=== PATIENT | male | born 1950 | race Caucasian/White ===

== ENCOUNTER 2016-12-13 16:10 | Inpatient (IN) | payer MEDICARE ==
[2016-12-13 21:14] LABS: Glucose,Whole Blood 94 mg/dL (75-99)
[2016-12-13 21:23] VITALS: BMI 35.6
[2016-12-13] MEDS ORDERED: HEPARIN SODIUM,PORCINE 5,000 UNIT/ML 1 ML VIAL IV ONE (21:24)
[2016-12-13] MEDS ORDERED: HEPARIN SODIUM,PORCINE 5,000 UNIT/ML 1 ML VIAL IV PRN (21:24)
[2016-12-13] MEDS ORDERED: MORPHINE SULFATE 4 MG/ML SYRINGE IVP PRN (22:03)
[2016-12-13 22:39] LABS: Basophils % (A) 1 %; CH 28.5; CHCM 33.4; Eosinophils # (A) 0.2 k/uL (0-0.7); Eosinophils % (A) 2 %; HCT 43.4 % (39.0-53.0); HDW 2.91; HGB 14.3 gm/dL (13.0-17.5); Luc # (Auto) 0.14; Luc % (Auto) 2; Lymphocytes # (A) 1.4 k/uL (1.0-4.8); Lymphocytes % (A) 17 %; MCH 28.2 pg (25.0-35.0); MCHC 32.9 g/dL (31.0-37.0); MCV 85.8 fL (80.0-100.0); Mean Platelet Volume 7.4; Monocytes # (A) 0.6 k/uL (0-1.0); Monocytes % (A) 7 %; Neutrophils % (A) 72 %; RBC 5.06 m/uL (4.30-5.90); RDW 13.8 % (11.5-15.5); WBC 8.3 k/uL (3.8-10.6)
[2016-12-13 22:48] LABS: INR 1.1 (<1.1); Partial Thromboplastin Time 23.9 sec (22.0-30.0); Prothrombin Time 10.8 sec (9.0-12.0)
[2016-12-13 22:50] LABS: Anion Gap 11 mmol/L; Blood Urea Nitrogen 13 mg/dL (9-20); Calcium 8.6 mg/dL (8.4-10.2); Carbon Dioxide 27 mmol/L (22-30); Chloride 102 mmol/L (98-107); Glucose 92 mg/dL (74-99); Non-African American GFR(MDRD) >60 (>60 ml/min/1.73 sqM); Potassium 3.9 mmol/L (3.5-5.1); Sodium 140 mmol/L (137-145)
[2016-12-13] MEDS: HYDROcodone/APAP 7.5-325MG 1 EACH TAB PO PRN (22:52)
[2016-12-13] MEDS: diphenhydrAMINE 25 MG CAP PO SCH (22:52)
[2016-12-13] MEDS: HEPARIN SODIUM,PORCINE/D5W PMX 25,000 UNIT in DEXTROSE/WATER 1 500ML.BAG IV SCH (22:53)
[2016-12-13] MEDS: NITROGLYCERIN-D5W PMX 50 MG in DEXTROSE/WATER 1 250ML.BAG IV SCH (22:54)
[2016-12-13] MEDS: TERAZOSIN 5 MG CAP PO SCH (22:56)
[2016-12-13] MEDS: METHOCARBAMOL 750 MG TAB PO SCH (22:56)
[2016-12-13] MEDS: METOPROLOL SUCCINATE (ER) 50 MG TAB.ER.24H PO SCH (22:56)
[2016-12-13] MEDS: ATORVASTATIN 80 MG TAB PO SCH (22:57)
[2016-12-13] MEDS: ALLOPURINOL 300 MG TAB PO SCH (22:57)
[2016-12-13] MEDS: LOSARTAN 50 MG TAB PO SCH (22:57)
[2016-12-13] MEDS: PRIMIDONE 50 MG TAB PO SCH (22:57)
[2016-12-13] MEDS: MAGNESIUM OXIDE 400 MG TAB PO SCH (22:57)
[2016-12-13] MEDS: FINASTERIDE 5 MG TAB PO SCH (22:58)
[2016-12-13] MEDS: traZODone HCL 50 MG TAB PO SCH (22:58)
[2016-12-14 06:17] LABS: Glucose,Whole Blood 127 mg/dL (75-99)
[2016-12-14] MEDS: ASPIRIN 81 MG CHEW PO SCH (06:24)
[2016-12-14] MEDS: METOPROLOL SUCCINATE (ER) 50 MG TAB.ER.24H PO SCH ×2 (06:24→21:23)
[2016-12-14] MEDS: HYDROcodone/APAP 7.5-325MG 1 EACH TAB PO PRN ×4 (06:24→22:36)
[2016-12-14] MEDS: TERAZOSIN 5 MG CAP PO SCH ×2 (06:24→21:23)
[2016-12-14] MEDS: METHOCARBAMOL 750 MG TAB PO SCH ×2 (06:24→21:24)
[2016-12-14] MEDS: CLOPIDOGREL 75 MG TAB PO SCH (06:24)
[2016-12-14 06:45] LABS: Basophils % (A) 1 %; CHCM 32.2; Eosinophils # (A) 0.2 k/uL (0-0.7); Eosinophils % (A) 3 %; HCT 43.2 % (39.0-53.0); HDW 2.78; HGB 13.9 gm/dL (13.0-17.5); Luc # (Auto) 0.14; Luc % (Auto) 2; Lymphocytes # (A) 1.3 k/uL (1.0-4.8); Lymphocytes % (A) 17 %; MCH 28.1 pg (25.0-35.0); MCHC 32.2 g/dL (31.0-37.0); MCV 87.4 fL (80.0-100.0); Mean Platelet Volume 7.6; Monocytes # (A) 0.5 k/uL (0-1.0); Monocytes % (A) 6 %; Neutrophils # (A) 5.3 k/uL (1.3-7.7); Neutrophils % (A) 72 %; RBC 4.94 m/uL (4.30-5.90); RDW 14.1 % (11.5-15.5); WBC 7.3 k/uL (3.8-10.6)
[2016-12-14 07:11] LABS: Anion Gap 9 mmol/L; Blood Urea Nitrogen 12 mg/dL (9-20); Calcium 8.3 mg/dL (8.4-10.2); Carbon Dioxide 29 mmol/L (22-30); Chloride 101 mmol/L (98-107); Glucose 117 mg/dL (74-99); Non-African American GFR(MDRD) >60 (>60 ml/min/1.73 sqM); Potassium 3.8 mmol/L (3.5-5.1); Sodium 139 mmol/L (137-145)
[2016-12-14] MEDS ORDERED: IV FLUID CONTINUATION 325 ML IV ONE (07:25)
[2016-12-14] MEDS ORDERED: LIDOCAINE 2% INJ 20 MG/ML SQ ONE (07:46)
[2016-12-14] MEDS: VERAPAMIL SYRINGE (5 MG/10 ML) INTRAARTER ONE ×2 (07:49→08:30)
[2016-12-14] MEDS ORDERED: HYDROmorphone 2 MG/ML 1 ML SYRINGE IVP ONE (07:50)
[2016-12-14] MEDS ORDERED: HEPARIN SODIUM 1,000 UNIT/ML VIAL IV ONE (07:51)
[2016-12-14] MEDS ORDERED: MIDAZOLAM 2 MG/2 ML VIAL IVP ONE (07:51)
[2016-12-14] MEDS ORDERED: BIVALIRUDIN BOLUS 250 MG/50 ML IV ONE (08:14)
[2016-12-14] MEDS ORDERED: BIVALIRUDIN 250 MG in SODIUM CHLORIDE 0.9% 50 ML IV ONE (08:15)
[2016-12-14] MEDS ORDERED: fentaNYL (PF) 50 MCG/ML 2 ML AMP IV ONE (08:24)
[2016-12-14] MEDS ORDERED: CLOPIDOGREL 75 MG TAB PO ONE (08:28)
[2016-12-14] MEDS ORDERED: IOHEXOL 350 MG/ML 100 ML BOTTLE INJ ONE (08:31)
[2016-12-14] MEDS: PRIMIDONE 50 MG TAB PO SCH ×2 (09:34→21:23)
[2016-12-14] MEDS: LORATADINE 10 MG TAB PO SCH (09:35)
[2016-12-14] MEDS: IPRATROPIUM BROMIDE 0.06% NASAL SPRAY (15 ML) EA NOSTRIL SCH (09:35)
[2016-12-14] MEDS: SODIUM CHLORIDE 0.9% 600 ML IV SCH ×2 (10:41→16:23)
[2016-12-14] MEDS: NITROGLYCERIN SL TABS 0.4 MG TAB SUBLINGUAL PRN (11:51)
--- NOTE | 2016-12-14 13:00 | CC ---
DATE OF SERVICE: 12/14/2016 PERFORMING PHYSICIAN: Willis Rodriguez MD, street commissioner. PROCEDURE PERFORMED: 1. Selective right and left coronary angiogram. 2. Successful stenting of the proximal LAD using a 3.0 x 12 mm Xience NAYLA with a good angiographic result. INDICATION: This is a pleasant, 66-year-old gentleman who is known to have CAD with prior stenting of the left circumflex and LAD presented to [facility] with chest discomfort. He was seen and evaluated by Dr. Peterson who recommended proceeding with heart catheterization. APPROACH: Right radial artery. COMPLICATIONS: None. LEVEL OF SEDATION: Moderate. PROCEDURE DESCRIPTION: After obtaining an informed consent, the patient was brought to the cardiac clinical lab technologist. Right radial artery was cannulated using micropuncture technique. The micropuncture wire passed easily, then I placed 6 [place] sheath in the right radial artery. Subsequently I gave the patient 2 mg of verapamil IA and 3000 units of heparin IV. After that, I did selective right and left coronary angiogram using JR4 and JL3.5 diagnostic catheters. After that, I did intervene on the LAD, please see separate paragraph for that. SELECTIVE CORONARY ANGIOGRAM: 1. The right coronary artery is a large-caliber vessel and it is a dominant vessel. It has mild disease only. It bifurcates distally into PDA and PLV branches; both have mild diffuse disease only. 2. The left main is a large-caliber vessel. It is angiographically normal. It bifurcates into left circumflex and left anterior descending artery. 3. The left circumflex is a large-caliber vessel and it is a codominant vessel. The proximal circumflex is angiographically normally. The mid circumflex appeared to be normal as well and gives rise into a large first OM branch, which bifurcates distally into 2 separate branches. The upper ( ) branch appeared to have severe lesion in the range of 70% and seems to be a ( ) vessel only. The left circumflex continues after that as a small-caliber vessel in the AV groove. 4. Left anterior descending artery, the proximal LAD just proximal to the previous stent has a lesion that seems to be in the range of 70%. The stent in the LAD appeared to be patent. The LAD distally by the apex has a lesion that seems to be in the range of 90%, which seems to be unchanged compared to before. PCI OF THE LAD: Anticoagulation was initiated using Angiomax. Subsequently, I took JL3 guiding catheter, and the left main was engaged. A whisper wire was used to wire the LAD. After that, I did direct stenting of the lesion using a 3.0 x 12 mm Xience NAYLA, where the stent was positioned under fluoroscopy guidance and deployed under 12 atmospheres for 20 seconds. The following angiogram showed good angiographic results. CONCLUSION: 1. Mild disease involving the right coronary artery. 2. Severe disease involving the mid first obtuse marginal branch of the left circumflex, but it seems to be unchanged compared to before and the artery only ( ) vessel. 3. Severe disease involving the proximal left anterior descending artery just proximal to previous stent. 4. Severe disease involving the apical left anterior descending artery, which seems to be unchanged compared to before. 5. Successful stenting of the proximal left anterior descending artery using 3.0 x 12 mm Xience NAYLA with a good angiographic result. POSTPROCEDURE MANAGEMENT: 1. Dual antiplatelet therapy. 2. Risk factor modifications. 3. Follow up with the patient.
[2016-12-14] MEDS: CHOLECALCIFEROL 1,000 UNIT TAB PO SCH (13:16)
--- NOTE | 2016-12-14 18:53 | HP ---
DATE OF ADMISSION: 12/13/2016 PRESENTING COMPLAINT: Chest pain. HISTORY OF PRESENTING COMPLAINT: This is a 66-year-old patient well known to me from multiple admissions. Patient had just presented to [facility] with unstable angina and from there he was transferred here with a view to proceed with cardiac catheterization. Patient has been having chest pain and shortness of breath with radiation, rather cardiac-sounding. His chronic stable medical conditions include increased cholesterol, hypertension, diabetes mellitus, type 2, GERD, depression, gout, coronary artery disease with stents. He does follow with Dr. Agustin French. REVIEW OF SYSTEMS: CONSTITUTIONAL: Tired. HEENT: None. RESPIRATORY: None. CARDIOVASCULAR: As above. GASTROINTESTINAL: Heartburn. GENITOURINARY: None. MUSCULOSKELETAL: Pain in the joints. DERMATOLOGICAL: None. HEMATOLOGIC: None. LYMPHATICS: None. PSYCHIATRY: None. NEUROLOGICAL: None. PAST MEDICAL HISTORY: 1. Coronary artery disease with stent. 2. Hypercholesterolemia. 3. Hypertension. 4. Diabetes mellitus, type 2. 5. GERD. 6. Depression. 7. Gout. ALLERGIES: NONE. FAMILY HISTORY: Coronary artery disease. SOCIAL HISTORY: Patient smoked a pack a day for 33 years. Stopped 16 years ago. . Patient is on Disability. HOME MEDICATIONS: 1. Trazodone 37.5 mg p.o. at bedtime. 2. Metformin 500 mg p.o. b.i.d. 3. Benadryl 25 mg p.o. at bedtime. 4. Testosterone injection q.14 days. 5. Hytrin 5 mg p.o. b.i.d. 6. Mysoline 50 mg p.o. b.i.d. 7. Prilosec 20 mg p.o. q.48 hours. 8. Nitrostat 0.4 sublingually q.5 p.r.n. 9. Toprol XL 50 mg p.o. b.i.d. 10. Robaxin 1500 mg p.o. at bedtime and 50 mg p.o. daily. 11. Magnesium 400 mg p.o. at bedtime. 12. Losartan 100 mg p.o. at bedtime. 13. Claritin 10 mg p.o. daily. 14. Imdur ER 30 mg p.o. b.i.d. 15. Atrovent nasal spray 2 sprays each nostril daily. 16. Hydrochlorothiazide 12.5 p.o. q.48 hours. 17. [place] 7.5 one tablet q.4 p.r.n. 18. Proscar 5 mg p.o. at bedtime. 19. Plavix 75 mg p.o. daily. 20. Vitamin D3 600 units p.o. daily. 21. Lipitor 80 mg at bedtime. 22. Aspirin 81 mg p.o. daily. 23. Allopurinol 150 mg p.o. at bedtime. ALLERGIES: PENTAZOCINE. On examination, temperature afebrile, pulse 74, respiration 18, blood pressure 130/63, pulse ox 95% on 2 L. GENERAL APPEARANCE: Well built, BMI 37. Lying in bed. Tired-appearing. EYES: Pupils equal. Conjunctivae normal. HEENT: Oral cavity normal. NECK: JVD not raised. Mass not palpable. RESPIRATORY: Effort normal. LUNGS: Slightly decreased breath sounds. CARDIOVASCULAR: First and second sounds normal. No edema. ABDOMEN: Soft, nontender. Liver and spleen not palpable. LYMPHATIC: No lymph node palpable in neck or axillae. PSYCHIATRY: Alert and oriented x3. Mood and affect normal. INVESTIGATIONS: White count 7.3, hemoglobin 13.9. Potassium 3.8. BUN and creatinine are normal. Cardiac catheterization this morning; patient did have a stent in the proximal LAD. ASSESSMENT: 1. Unstable angina in a patient with known coronary artery disease, now with stent placement to the left anterior descending coronary artery. 2. Hypercholesterolemia. 3. Hypertension. 4. Diabetes mellitus, type 2. 5. Gastroesophageal reflux disease. 6. Depression. 7. Gout. PLAN: Continue current medication and treatment plan. Care with discussed with the patient's at the bedside. Dr. Rodriguez ( ) intervention.
[2016-12-14] MEDS: diphenhydrAMINE 25 MG CAP PO SCH (21:21)
[2016-12-14] MEDS: LOSARTAN 50 MG TAB PO SCH (21:22)
[2016-12-14] MEDS: ATORVASTATIN 80 MG TAB PO SCH (21:22)
[2016-12-14] MEDS: FINASTERIDE 5 MG TAB PO SCH (21:23)
[2016-12-14] MEDS: traZODone HCL 50 MG TAB PO SCH (21:23)
[2016-12-14] MEDS: ALLOPURINOL 300 MG TAB PO SCH (21:24)
[2016-12-14] MEDS: MAGNESIUM OXIDE 400 MG TAB PO SCH (21:25)
[2016-12-14] MEDS: NITROGLYCERIN-D5W PMX 50 MG in DEXTROSE/WATER 1 250ML.BAG IV SCH (21:30)
[2016-12-14] MEDS: HEPARIN SODIUM,PORCINE/D5W PMX 25,000 UNIT in DEXTROSE/WATER 1 500ML.BAG IV SCH (21:30)
[2016-12-15] MEDS: SODIUM CHLORIDE 0.9% 600 ML IV SCH ×4 (00:14→16:42)
[2016-12-15] MEDS: HYDROcodone/APAP 7.5-325MG 1 EACH TAB PO PRN ×5 (06:04→23:33)
[2016-12-15] MEDS: METHOCARBAMOL 750 MG TAB PO SCH ×2 (06:05→20:09)
[2016-12-15] MEDS: ISOSORBIDE MONONITRATE ER 30 MG TAB.ER.24H PO SCH ×2 (06:47→20:10)
[2016-12-15 07:24] LABS: Basophils % (A) 0 %; CH 28.1; CHCM 32.1; Eosinophils # (A) 0.3 k/uL (0-0.7); Eosinophils % (A) 3 %; HCT 44.5 % (39.0-53.0); HDW 2.77; HGB 14.5 gm/dL (13.0-17.5); Luc # (Auto) 0.12; Luc % (Auto) 1; Lymphocytes % (A) 12 %; MCH 28.6 pg (25.0-35.0); MCHC 32.5 g/dL (31.0-37.0); Mean Platelet Volume 7.6; Monocytes # (A) 0.4 k/uL (0-1.0); Monocytes % (A) 5 %; Neutrophils # (A) 6.6 k/uL (1.3-7.7); Neutrophils % (A) 79 %; RBC 5.05 m/uL (4.30-5.90); WBC 8.3 k/uL (3.8-10.6); WBC (Perox) 8.64
[2016-12-15] MEDS: IPRATROPIUM BROMIDE 0.06% NASAL SPRAY (15 ML) EA NOSTRIL SCH (08:16)
[2016-12-15] MEDS: CLOPIDOGREL 75 MG TAB PO SCH (08:17)
[2016-12-15] MEDS: TERAZOSIN 5 MG CAP PO SCH ×2 (08:17→20:11)
[2016-12-15] MEDS: METOPROLOL SUCCINATE (ER) 50 MG TAB.ER.24H PO SCH ×2 (08:18→20:13)
[2016-12-15] MEDS: PRIMIDONE 50 MG TAB PO SCH ×2 (08:19→20:10)
[2016-12-15] MEDS: CHOLECALCIFEROL 1,000 UNIT TAB PO SCH (08:19)
[2016-12-15] MEDS: ASPIRIN 81 MG CHEW PO SCH (08:19)
[2016-12-15] MEDS: LORATADINE 10 MG TAB PO SCH (08:19)
--- NOTE | 2016-12-15 12:49 | P.PN ---
Subjective Principal diagnosis: LAD stent This 66-year-old gentleman with known history of prior coronary artery disease who presented to [facility] with a non-ST elevation myocardial infarction. He was transferred here to [facility] where he underwent angioplasty and stenting of the LAD. Patient was seen and examined this morning, he's been up ambulating in the hallway most of the morning without any difficulty. She did complain of a mild ache in his chest earlier this morning, at the time of our examination he was pain-free. Blood pressure 140/70 with a heart rate in the 70s. CBC normal this morning. EKG shows normal sinus rhythm with no changes from post-PCI. Objective - Vital Signs Vital signs: Vital Signs Temp 97 F L 12/15/16 05:30 Pulse 76 12/15/16 11:16 Resp 18 12/15/16 11:16 BP 145/74 12/15/16 11:16 Pulse Ox 99 12/15/16 11:16 Intake & Output 12/14/16 12/15/16 12/15/16 18:59 06:59 18:59 Intake Total 495 0 118 Output Total 0 1000 Balance 495 -1000 118 Weight 127.9 kg Intake: IV 158 Intake, IV Titration 0 Amount Sodium Chloride 0.9% 600 0 ml @ 100 mls/hr IV .Q6H [facility] Rx#:[id number] Oral 337 118 Output: Urine 0 1000 - Exam PHYSICAL EXAMINATION: HEENT: Head is atraumatic, normocephalic. Pupils equal, round. Neck is supple. There is no elevated jugular venous pressure. HEART EXAMINATION: Heart S1, S2 normal. No murmur or gallop heard. CHEST EXAMINATION: Lungs are clear to auscultation and precussion. No chest wall tenderness is noted on palpation or with deep breathing. ABDOMEN: Soft, nontender. Bowel sounds are heard. No organomegaly noted. Radial site clean and dry, good distal pulse. EXTREMITIES: 2+ peripheral pulses with no evidence of peripheral edema and no calf tenderness noted. NEUROLOGIC patient is awake, alert and oriented -3. . - Labs CBC & Chem 7: 12/15/16 06:25 12/14/16 05:41 Labs: Abnormal Lab Results - Last 24 Hours (Table) 12/15/16 Range/Units 06:25 Plt Count 142 L (150-450) k/uL Assessment and Plan (1) Presence of stent in LAD coronary artery Status: Acute (2) HTN (hypertension) Status: Acute (3) Hyperlipemia Status: Acute (4) Presence of stent in left circumflex coronary artery Status: Acute Plan: Cardiology's perspective, patient has been encouraged to be up ambulating in the hallway today. Plan for possible discharge home in 24 hours on dual antiplatelet therapy. DNP note has been reviewed, I agree with a documented findings and plan of care. Patient was seen and examined.
[2016-12-15] MEDS: NITROGLYCERIN SL TABS 0.4 MG TAB SUBLINGUAL PRN ×2 (16:00→16:09)
[2016-12-15] MEDS: NITROGLYCERIN OINT 1 INCH/GM PACKET TOPICAL SCH ×2 (17:54→23:37)
[2016-12-15] MEDS: diphenhydrAMINE 25 MG CAP PO SCH (20:07)
[2016-12-15] MEDS: traZODone HCL 50 MG TAB PO SCH (20:09)
[2016-12-15] MEDS: ALLOPURINOL 300 MG TAB PO SCH (20:10)
[2016-12-15] MEDS: LOSARTAN 50 MG TAB PO SCH (20:10)
[2016-12-15] MEDS: ATORVASTATIN 80 MG TAB PO SCH (20:10)
[2016-12-15] MEDS: FINASTERIDE 5 MG TAB PO SCH (20:11)
[2016-12-15] MEDS: MAGNESIUM OXIDE 400 MG TAB PO SCH (20:11)
--- NOTE | 2016-12-15 22:04 | PN ---
DATE OF SERVICE: 12/15/2016 PRESENTING COMPLAINT: Chest pain. INTERVAL HISTORY: This is a patient who presented with chest pains, unstable angina, and is now status post stent placement to the left coronary artery. This morning patient is resting comfortably in bed. No complaints of any further chest pain or shortness of breath. Patient has been up walking in the hallway and to and from the bathroom with no difficulty. Patient has eaten his breakfast with no nausea or vomiting. Review of systems is done for constitutional, cardiovascular, GI, pulmonary, with relevant findings as above. PHYSICAL EXAMINATION: VITAL SIGNS: Temperature 97.0, pulse 75, respiratory rate 18, blood pressure 147/74, oxygen saturation 96% on room air. GENERAL APPEARANCE: Patient is lying in the bed. No discomfort noted. Patient appears relaxed, calm and cooperative. EYES: Pupils equal. Conjunctivae normal. NECK: JVD not raised. Mass not palpable. LUNGS: Diminished bilaterally. RESPIRATORY: Effort normal. CARDIOVASCULAR: First and second sounds noted. No edema. ABDOMEN: Soft, nontender. Liver and spleen not palpable. PSYCHIATRY: Alert and oriented x3. Mood and affect are normal. SKIN: Right groin mildly ecchymotic with surgical dressing in place. INVESTIGATIONS: Platelet count 142. Blood glucose 127. ASSESSMENT: 1. Unstable angina in a patient with known coronary artery disease, now with stent placement to the left anterior descending coronary artery. 2. Hypercholesterolemia. 3. Essential hypertension. 4. Diabetes mellitus, type 2, on oral hypoglycemics. 5. Gastroesophageal reflux disease. 6. Depression, otherwise unspecified. 7. Gout. PLAN: Continue with current medication and treatment plan. Plan of care was discussed with the patient at the bedside. Discharge planning in the next 1 to 2 days. Patient was seen and examined by nurse practitioner Candelaria Wright, and all elements of the case were discussed with the attending, Dr. Restrepo.
[2016-12-16] MEDS: SODIUM CHLORIDE 0.9% 600 ML IV SCH (01:58)
[2016-12-16] MEDS: HYDROcodone/APAP 7.5-325MG 1 EACH TAB PO PRN ×2 (04:50→11:52)
[2016-12-16] MEDS: METHOCARBAMOL 750 MG TAB PO SCH (06:23)
[2016-12-16 06:47] LABS: Basophils % (A) 0 %; CH 28.5; CHCM 32.5; Eosinophils # (A) 0.1 k/uL (0-0.7); Eosinophils % (A) 2 %; HCT 41.8 % (39.0-53.0); HGB 13.5 gm/dL (13.0-17.5); Luc # (Auto) 0.15; Luc % (Auto) 2; Lymphocytes # (A) 1.2 k/uL (1.0-4.8); Lymphocytes % (A) 15 %; MCH 28.4 pg (25.0-35.0); MCHC 32.2 g/dL (31.0-37.0); MCV 88.1 fL (80.0-100.0); Monocytes # (A) 0.4 k/uL (0-1.0); Monocytes % (A) 6 %; Neutrophils # (A) 5.8 k/uL (1.3-7.7); Neutrophils % (A) 75 %; RBC 4.74 m/uL (4.30-5.90); RDW 13.9 % (11.5-15.5); WBC 7.7 k/uL (3.8-10.6)
[2016-12-16] MEDS: ASPIRIN 81 MG CHEW PO SCH (08:17)
[2016-12-16] MEDS: IPRATROPIUM BROMIDE 0.06% NASAL SPRAY (15 ML) EA NOSTRIL SCH (08:17)
[2016-12-16] MEDS: CLOPIDOGREL 75 MG TAB PO SCH (08:17)
[2016-12-16] MEDS: METOPROLOL SUCCINATE (ER) 50 MG TAB.ER.24H PO SCH (08:18)
[2016-12-16] MEDS: ISOSORBIDE MONONITRATE ER 30 MG TAB.ER.24H PO SCH (08:18)
[2016-12-16] MEDS: LORATADINE 10 MG TAB PO SCH (08:18)
[2016-12-16] MEDS: PRIMIDONE 50 MG TAB PO SCH (08:19)
[2016-12-16] MEDS: TERAZOSIN 5 MG CAP PO SCH (08:19)
[2016-12-16] MEDS: CHOLECALCIFEROL 1,000 UNIT TAB PO SCH (08:19)
[2016-12-16 08:55] LABS: Anion Gap 7 mmol/L; Blood Urea Nitrogen 16 mg/dL (9-20); Calcium 8.7 mg/dL (8.4-10.2); Carbon Dioxide 31 mmol/L (22-30); Chloride 101 mmol/L (98-107); Glucose 93 mg/dL (74-99); Non-African American GFR(MDRD) >60 (>60 ml/min/1.73 sqM); Potassium 4.3 mmol/L (3.5-5.1); Sodium 139 mmol/L (137-145)
--- NOTE | 2016-12-16 10:29 | PN ---
DATE OF SERVICE: 12/15/2016 ATTENDING NOTE: This patient was examined by me on 12/15/16. I reviewed the note of my nurse practitioner, Ms. Wright. Discussed and agree with the same. Patient is status post cardiac cath stent, feeling a bit tired. Patient had some episode of chest pain. Awaiting input from Cardiology when I saw the patient. Did tolerate some breakfast. On examination, blood pressure 147/74, pulse ox 96% on room air. LUNGS: Decreased breath sounds. CARDIOVASCULAR: First and second sounds normal. PSYCH: Alert and oriented x3, smiling. INVESTIGATIONS: White count 8.3. ASSESSMENT: 1. Coronary artery disease, now with a stent to the left anterior descending artery with some chest pain. 2. Hypercholesterolemia. 3. Essential hypertension. 4. Diabetes mellitus type 2. PLAN: Continue current medication and treatment plan. Await input from cardiology. Will follow.
[2016-12-16] MEDS: NITROGLYCERIN OINT 1 INCH/GM PACKET TOPICAL SCH (11:52)
[2016-12-16] MEDS ORDERED: RANOLAZINE 500 MG TAB.ER.12H PO SCH (13:15)
--- NOTE | 2016-12-16 14:04 | P.PN ---
Subjective Principal diagnosis: LAD stent This 66-year-old gentleman with known history of prior coronary artery disease who presented to [facility] with a non-ST elevation myocardial infarction. He was transferred here to [facility] where he underwent angioplasty and stenting of the LAD. Patient was seen and examined this morning, he's been up ambulating in the hallway most of the morning without any difficulty. He did complain of chest discomfort with ambulating today. An EKG was performed earlier this morning with chest pain which did not reveal any changes. Did speak with Dr. Hodges regarding the patient's episodes of chest discomfort which appear atypical. We will add Ranexa to his medication regime and he may be able to be discharged home today from our perspective to follow-up appointment will be made with Dr. Hodges in the office post discharge. Objective - Vital Signs Vital signs: Vital Signs Temp 97.5 F L 12/16/16 08:00 Pulse 81 12/16/16 08:00 Resp 16 12/16/16 08:00 BP 142/71 12/16/16 08:00 Pulse Ox 93 L 12/16/16 08:00 Intake & Output 12/15/16 12/16/16 12/16/16 18:59 06:59 18:59 Intake Total 520 180 Output Total 300 650 Balance 220 -650 180 Weight 127.9 kg 126.1 kg Intake: Oral 520 180 Output: Urine 300 650 Other: # Voids 300 - Exam PHYSICAL EXAMINATION: HEENT: Head is atraumatic, normocephalic. Pupils equal, round. Neck is supple. There is no elevated jugular venous pressure. HEART EXAMINATION: Heart S1, S2 normal. No murmur or gallop heard. CHEST EXAMINATION: Lungs are clear to auscultation and precussion. No chest wall tenderness is noted on palpation or with deep breathing. ABDOMEN: Soft, nontender. Bowel sounds are heard. No organomegaly noted. Radial site clean and dry, good distal pulse. EXTREMITIES: 2+ peripheral pulses with no evidence of peripheral edema and no calf tenderness noted. NEUROLOGIC patient is awake, alert and oriented -3. . - Labs CBC & Chem 7: 12/16/16 05:30 12/16/16 05:30 Labs: Abnormal Lab Results - Last 24 Hours (Table) 12/16/16 12/16/16 Range/Units 05:30 05:30 Plt Count 133 L (150-450) k/uL Carbon Dioxide 31 H (22-30) mmol/L Assessment and Plan (1) Presence of stent in LAD coronary artery Status: Acute (2) HTN (hypertension) Status: Acute (3) Hyperlipemia Status: Acute (4) Presence of stent in left circumflex coronary artery Status: Acute Plan: Cardiology's perspective, he may be able to be discharged home today a follow- up appointment will be made with Dr. Rodriguez in the office post discharge. DNP note has been reviewed, I agree with a documented findings and plan of care. Patient was seen and examined.
[2016-12-16 15:32] VITALS: BP 132/73; PULSE 69; RESP 18; TEMP 97.8
--- NOTE | 2016-12-17 09:17 | DS ---
DATE OF ADMISSION: 12/13/2016 DATE OF DISCHARGE: 12/16/2016 FINAL DIAGNOSES: 1. Unstable angina in a patient with known coronary artery disease now with stent placement to the left anterior descending coronary artery. 2. Hypercholesterolemia. 3. Essential hypertension. 4. Diabetes mellitus, type 2, on oral hypoglycemics. 5. Gastroesophageal reflux disease. 6. Depression, otherwise unspecified. 7. Gout. Consultations with Dr. Rodriguez of cardiology. HOSPITAL COURSE: This is a patient who presented with chest pain and unstable angina is now status post stent placement to the left coronary artery. Patient presented after being seen at [facility] and was subsequently transferred here for a heart catheterization. Patient was taken to the labor training manager. Stent was placed to the left coronary artery. Hemostasis was achieved. Patient was returned to his room. Patient has been up and around, tolerating his diet, ambulating without difficulty. This morning patient did complain of chest discomfort when ambulating. EKG was completed and did not reveal any changes. Medication Ranexa was added to his medication regimen. Patient again tolerating his diet, ambulating in the halls, not having any further chest pain. Therefore, patient is ready to be discharged. ON EXAMINATION: LUNGS: Diminished breath sounds bilaterally. CARDIOVASCULAR: First and second sounds noted. No edema. DISCHARGE MEDICATIONS: 1. Allopurinol 150 mg p.o. at bedtime. 2. Aspirin EC 81 mg p.o. daily. 3. Proscar 5 mg p.o. at bedtime. 4. [place] 7.5/325 one tab q.4 hours p.r.n. 5. Hydrochlorothiazide 12.5 mg p.o. q. 48 hours. 6. Loratadine 10 mg p.o. daily. 7. Losartan potassium 100 mg p.o. at bedtime. 8. Omeprazole 20 mg p.o. q.48 hours. 9. Hytrin 5 mg p.o. b.i.d. 10. Testosterone injection one application injection every 14 days. 11. Trazodone 37.5 mg p.o. at bedtime. 12. Cholecalciferol 6000 units p.o. daily. 13. Magnesium 400 mg p.o. at bedtime. 14. Robaxin 1500 mg p.o. at bedtime. 15. Robaxin 750 mg p.o. daily. 16. Primidone 50 mg p.o. b.i.d. 17. Diphenhydramine 25 mg p.o. at bedtime. 18. Atorvastatin calcium 80 mg p.o. at bedtime. 19. Metoprolol 50 mg p.o. b.i.d. 20. Nitroglycerin sublingual tabs 0.4 mg sublingual q.5 minutes p.r.n. 21. Plavix 75 mg p.o. daily. 22. Ipratropium bromide 2 sprays each nostril daily. 23. Isosorbide mononitrate 30 mg p.o. b.i.d. 24. Metformin 500 mg p.o. b.i.d. 25. Nitroglycerin sublingual tablets 0.4 mg sublingual q.5 minutes p.r.n. 26. Ranexa 500 mg p.o. q.12 hours. Follow up with Dr. Rodriguez on 12/24/[address] Schrader in 3 days. DISCHARGE TIME: More than 35 minutes spent including discussion. PATIENT DISPOSITION: Patient is to go home with family. Patient was seen and examined by nurse practitioner, Candelaria Wright, and all elements of the case discussed with attending, Dr. Restrepo.
--- NOTE | 2016-12-18 06:23 | DS ---
DATE OF ADMISSION: 12/13/2016 DATE OF DISCHARGE: 12/16/2016 This patient was seen and examined by me on 12/16/2016. I reviewed the discharge summary by my Nurse practitioner Ms. Wright and discussed and agree with the same. Patient underwent cardiac catheterization with intervention to the LAD. Doing better. Up and about. No chest pain by discharge. Seen by cardiology and cleared by them. On examination, LUNGS: Fair air entry, slightly decreased breath sounds. CARDIOVASCULAR: First and second sounds normal. Follow-up with medications as detailed in my ELECTROSLAG WELDING MACHINE OPERATOR's note.
== END 2016-12-16 16:16 | disposition home or self-care (01) | DRG 247 ==
LOC: 6SEL 20:53
PROVIDERS: ADMIT Hospitalist; ATTEND Hospitalist
PROC: B2111ZZ Fluoroscopy of Multiple Coronary Arteries using Low Osmolar Contrast (ICD-10-PCS; 2016-12-14)
PROC: 027034Z Dilation of Coronary Artery, One Artery with Drug-eluting Intraluminal Device, Percutaneous Approach (ICD-10-PCS; principal; 2016-12-14 07:20)
PROC: 4A023N7 Measurement of Cardiac Sampling and Pressure, Left Heart, Percutaneous Approach (ICD-10-PCS; 2016-12-14 07:20)
DX: I25.110 Atherosclerotic heart disease of native coronary artery with unstable angina pectoris (principal); I10 Essential (primary) hypertension; K21.9 Gastro-esophageal reflux disease without esophagitis; E78.00 Pure hypercholesterolemia, unspecified; E11.9 Type 2 diabetes mellitus without complications; E78.5 Hyperlipidemia, unspecified; F32.9 Major depressive disorder, single episode, unspecified; M10.9 Gout, unspecified; M25.50 Pain in unspecified joint; Z79.82 Long term (current) use of aspirin; Z82.49 Family history of ischemic heart disease and other diseases of the circulatory system; Z79.02 Long term (current) use of antithrombotics/antiplatelets; Z79.84 Long term (current) use of oral hypoglycemic drugs; Z79.899 Other long term (current) drug therapy; Z87.891 Personal history of nicotine dependence; Z95.5 Presence of coronary angioplasty implant and graft; Z79.1 Long term (current) use of non-steroidal anti-inflammatories (NSAID)
CPT/HCPCS: 80048; 85025; 85610; 85730; 93454

== ENCOUNTER → 2017-08-05 | Outpatient (CLI) | payer MEDICARE ==
[2017-08-05 11:30] LABS: Appearance,Urine Clear (Clear); Bilirubin,Urine Negative (Negative); Blood,Urine Negative (Negative); Color,Urine Yellow; Glucose,Urine (UA) Negative (Negative); Ketones,Urine Trace (Negative); Leukocyte Esterase,Urine Trace (Negative); Mucus,Urine Many /hpf; Nitrite,Urine Negative (Negative); Protein,Urine 1+ (Negative); RBC,Urine 1 /hpf (0-5); Specific Gravity,Urine 1.028 (1.001-1.035); WBC,Urine 5 /hpf (0-5)
[2017-08-05 11:31] LABS: Basophils % (A) 1 %; Eosinophils # (A) 0.2 k/uL (0-0.7); Eosinophils % (A) 2 %; HGB 14.3 gm/dL (13.0-17.5); Lymphocytes # (A) 1.1 k/uL (1.0-4.8); Lymphocytes % (A) 18 %; MCH 30.5 pg (25.0-35.0); MCHC 33.9 g/dL (31.0-37.0); MCV 89.8 fL (80.0-100.0); Monocytes # (A) 0.3 k/uL (0-1.0); Monocytes % (A) 5 %; Neutrophils # (A) 4.5 k/uL (1.3-7.7); Neutrophils % (A) 72 %; Platelet Count 173 k/uL (150-450); RBC 4.68 m/uL (4.30-5.90); WBC 6.2 k/uL (3.8-10.6)
[2017-08-05 12:14] LABS: ALT 58 U/L (21-72); AST 30 U/L (17-59); Albumin 4.1 g/dL (3.5-5.0); Alkaline Phosphatase 74 U/L (38-126); Anion Gap 9 mmol/L; Blood Urea Nitrogen 12 mg/dL (9-20); Calcium 9.4 mg/dL (8.4-10.2); Carbon Dioxide 33 mmol/L (22-30); Chloride 102 mmol/L (98-107); Cholesterol 161 mg/dL (<200); Glucose 140 mg/dL (74-99); HDL Cholesterol 48 mg/dL (40-60); LDL Cholesterol,Calculated 56 mg/dL (0-99); Potassium 4.5 mmol/L (3.5-5.1); Sodium 144 mmol/L (137-145); Total Protein 6.7 g/dL (6.3-8.2); Triglycerides 286 mg/dL (<150); Uric Acid 4.8 mg/dL (3.5-8.5)
[2017-08-05 12:32] LABS: PSA Annual Screen 0.69 ng/mL (0.00-4.00)
[2017-08-05 16:04] LABS: Vitamin D 25 Hydroxy 26.2 ng/mL (30.0-100.0)
[2017-08-05 19:15] LABS: Hepatitis C IgG Antibody Non-Reactive (Non-Reactive)
== END | disposition home or self-care (01) ==
LOC: LABWHC1 10:44
PROVIDERS: ATTEND Internal Medicine
DX: E55.9 Vitamin D deficiency, unspecified (principal); E11.9 Type 2 diabetes mellitus without complications; I10 Essential (primary) hypertension; M10.9 Gout, unspecified; Z12.5 Encounter for screening for malignant neoplasm of prostate
CPT/HCPCS: 86803; 80061; 80053; 84550; 85025; 81001; 82306; 82043; 82570; 83036; 36415; G0103

== ENCOUNTER → 2022-11-06 | Outpatient (CLI) | payer MEDICARE ==
--- NOTE | 2022-11-07 09:35 | PE ---
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 Images are reviewed on the computer in the coronal, a xial, and sagittal planes. Reconstructed rotating images are created on independent workstation and reviewed on the computer. A non-contrast CT is performed in conjunction with the PET scan. Glucose level 121 mg/dL COMPARISON: CT 09/17/2022, PET/CT None, FINDINGS: Mediastinal SUV mean is 1.2. Hepatic parenchyma SUV mean is 2.1. SKULL BASE AND NECK: Left maxillary sinus lesion with increased FDG activity max SUV 8.8 measuring 1 .4 x 1.2 cm CHEST, MEDIASTINUM, AND HILAR REGION: Large right axillary conglomerate mass max SUV 9.8 measuring 14.6 x 9.6 x 14.5 cm No additional suspicious FDG activity. ABDOMEN AND PELVIS: No suspicious radiotracer activity. Scattered physiologic uptake seen throughout the bowel. OSSEOUS STRUCTURES: No suspicious radiotracer activity. OTHER CT: Mild atherosclerosis of the arterial vasculature. Heart is enlarged for size. There are sev ere coronary artery atherosclerosis. Aortic valve leaflet calcifications are present. Bilateral fat-c ontaining inguinal hernias. Borderline prostatomegaly. Few scattered colonic diverticula present. IMPRESSION: 1. 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 2. Indeterminate left maxillary sinus FDG avid 14 x 12 mm lesion. Further evaluation with MRI sinus with IV contrast recommended to help further characterize. 3. Right cubital fossa FDG activity felt to be due to injection, correlate with injection the day of exam. Otherwise further evaluation acute process is recommended
== END | disposition home or self-care (01) ==
LOC: RADPETMAIN 13:59
PROVIDERS: ATTEND Internal Medicine Hematology & Oncology
DX: C7B.02 Secondary carcinoid tumors of liver (principal)
CPT/HCPCS: 78815; A9552

== ENCOUNTER 2022-11-16 10:31 | Day surgery (SDC) | payer MEDICARE ==
[2022-11-15 10:41] VITALS: BMI 37.0
[~2022-11-16 10:31] MED LIST: ALPRAZolam 0.25 MG TAB PO PRN; ALPRAZolam 0.5 MG TAB PO PRN; ASPIRIN 325 MG TAB PO ONE; NITROGLYCERIN SL TABS 0.4 MG TAB SUBLINGUAL PRN; SODIUM CHLORIDE 0.9% 1,000 ML in EMPTY BAG 1 BAG IV SCH
[2022-11-16] MEDS ORDERED: SODIUM CHLORIDE 0.9% 1,000 ML IV ONE (10:50)
[2022-11-16 10:57] LABS: Glucose,Whole Blood 145 mg/dL (70-110)
[2022-11-16 11:05] VITALS: TEMP 97
[2022-11-16 11:27] LABS: African American GFR (CKD) >90 (>60 ml/min/1.73 sqM); Anion Gap 5 mmol/L; Blood Urea Nitrogen 19 mg/dL (9-20); Calcium 9.1 mg/dL (8.4-10.2); Carbon Dioxide 33 mmol/L (22-30); Chloride 102 mmol/L (98-107); Glucose 149 mg/dL (74-99); Non-African American GFR(CKD) 81 (>60 ml/min/1.73 sqM); Potassium 4.6 mmol/L (3.5-5.1); Sodium 140 mmol/L (137-145)
[2022-11-16 11:35] LABS: Basophils % (A) 0 %; Eosinophils # (A) 0.2 k/uL (0-0.7); Eosinophils % (A) 2 %; HCT 35.7 % (39.0-53.0); HGB 11.8 gm/dL (13.0-17.5); Lymphocytes # (A) 0.9 k/uL (1.0-4.8); Lymphocytes % (A) 12 %; MCH 28.5 pg (25.0-35.0); MCHC 33.2 g/dL (31.0-37.0); Mean Platelet Volume 7.9; Monocytes # (A) 0.4 k/uL (0-1.0); Monocytes % (A) 5 %; Neutrophils # (A) 5.8 k/uL (1.3-7.7); Neutrophils % (A) 78 %; Platelet Count 264 k/uL (150-450); RBC 4.15 m/uL (4.30-5.90); RDW 13.6 % (11.5-15.5); WBC 7.5 k/uL (3.8-10.6)
[2022-11-16] MEDS ORDERED: HEPARIN SODIUM 1,000 UN/ML (10ML VL) ONE (12:33)
[2022-11-16] MEDS ORDERED: VERAPAMIL 2.5 MG/ML 2 ML AMP ONE (12:33)
[2022-11-16] MEDS ORDERED: LIDOCAINE 1% INJ 10MG/ML (20 ML MDV) SQ ONE (12:43)
[2022-11-16] MEDS ORDERED: LIDOCAINE 1% INJ 10MG/ML (20 ML MDV) ONE (12:43)
[2022-11-16] MEDS ORDERED: MIDAZOLAM 2 MG/2 ML VIAL IV ONE (12:45)
[2022-11-16] MEDS ORDERED: IOPAMIDOL-370 100ML BTL INJ ONE (13:06)
[2022-11-16] MEDS ORDERED: IOPAMIDOL-300 100ML BTL INJ ONE (13:06)
[2022-11-16] MEDS ORDERED: RX INFO: IV CONTRAST WAS GIVEN 1 EACH MISC MISCELLANE PRN (13:10)
[2022-11-16] MEDS ORDERED: SODIUM CHLORIDE 0.9% 1,000 ML IV SCH (13:15)
--- NOTE | 2022-11-16 13:16 | P.PCN ---
Date of Procedure: 11/16/22 Operative Findings: CARDIAC CATHETERIZATION PERFORMING PHYSICIAN: Willis Rodriguez MD, RPVI PROCEDURE PERFORMED: 1. Selective right and left coronary angiogram 2. Selective right common femoral artery angiogram INDICATION: Chest discomfort concerning for angina 72-year-old gentleman was known CAD and prior stenting of the LAD and LCx COMPLICATION: None APPROACH: Right common femoral artery LEVEL OF SEDATION: Moderate with sedation in length of 23 minutes PROCEDURE DESCRIPTION: After obtaining an informed consent, the patient was brought to cardiac computer laboratory technician. Local anesthesia was performed using lidocaine subcutaneously. The right common femoral artery was cannulated using Seldinger technique, the guidewire passed easily, following that we advanced a 6 [place] sheath dilator assembly, the wire and dilator were removed and sheath was flushed. Selective right and left coronary angiogram using a 6-[place] JR4 and JL catheters. The procedure was completed there was no complication. SELECTIVE CORONARY ANGIOGRAM: The right coronary artery: Large-caliber vessel and dominant vessel. The RCA has( Left main: Is angiographically normal. Bifurcates into a LCx and LAD The left circumflex: Large caliber vessel nondominant vessel. The LCx is a stented and the stent is patent. The LCx distally has a lesion appeared to be in the range of 60%. The left anterior descending artery: The LAD is a large caliber vessel. The LAD stented in the proximal and mid portions and the stents are patent. The distal LAD has a severe disease appears to be unchanged compared to before CONCLUSION: 1. Intermediate disease involving the distal LCx. The mid LCx is a stented and the stent is patent 2. Patent stent in the left anterior descending artery. Severe disease involving the distal LAD appears to be unchanged compared to before. The disease is in the apical area 3. [id number] disease involving the right coronary artery POSTPROCEDURE MANAGEMENT: The current treatment and follow-up with the patient
[2022-11-16] MEDS ORDERED: HYDROcodone/APAP 5-325MG 1 EACH TAB ONE (14:09)
[2022-11-16 16:00] VITALS: BP 159/71; PULSE 64; RESP 16
== END 2022-11-16 17:48 | disposition home or self-care (01) ==
LOC: CATHCVL 10:31
PROVIDERS: ATTEND Internal Medicine Interventional Cardiology
DX: I25.10 Atherosclerotic heart disease of native coronary artery without angina pectoris (principal); Z95.5 Presence of coronary angioplasty implant and graft; I35.0 Nonrheumatic aortic (valve) stenosis; I10 Essential (primary) hypertension; E78.5 Hyperlipidemia, unspecified; I47.1 Supraventricular tachycardia; F17.210 Nicotine dependence, cigarettes, uncomplicated; Z79.82 Long term (current) use of aspirin; Z79.899 Other long term (current) drug therapy; Z79.1 Long term (current) use of non-steroidal anti-inflammatories (NSAID)
CPT/HCPCS: 93454; 99153; 99152; 80048; 85025; C1760; C1887; C1769 ×2; C1894; J2250; J2001; Q9967 ×2